=== PATIENT | female | born 1990 | race African-American/Black ===

== ENCOUNTER 2016-09-06 08:43 | Emergency (ER) | payer MEDICAID ==
[2016-09-06 10:10] LABS: URINE SOURCE CLEAN CATCH
[2016-09-06 10:14] LABS: URINE APPEARANCE CLEAR; URINE BILIRUBIN NEG (NEG); URINE BLOOD NEG (NEG); URINE COLOR YELLOW; URINE GLUCOSE NEG (NEG); URINE KETONE NEG (NEG); URINE LEUKOCYTE ESTERASE NEG (NEG); URINE NITRATE NEG (NEG); URINE PH 5.5 (5-8); URINE PROTEIN NEG (NEG); URINE SPECIFIC GRAVITY 1.023 (1.003-1.035); URINE UROBILINOGEN 0.2 MG/DL (NEG)
[2016-09-06 10:21] LABS: CULTURE INDICATED? NO
== END 2016-09-06 10:45 | disposition home or self-care (01) ==
LOC: CED 08:43
PROVIDERS: Emergency Medicine
DX: R30.0 Dysuria (principal)
CPT/HCPCS: 81003; 84703; 99284